=== PATIENT | male | born 1945 | race Caucasian/White ===

== ENCOUNTER 2017-12-12 09:28 | Day surgery (SDC) | payer OTHER ==
[~2017-12-12] VITALS: Ht 172.7 cm; Wt 82.1 kg
[~2017-12-12 09:28] MED LIST: Amlodipine Besyl5 MG PO; CLON.5 PO; DOXY100 PO; ELIQUIS5 MG PO; LISI5 PO; Toprol Xl25 MG PO
[2017-12-13] MEDS ORDERED: Flomax0.4 MG PO (15:47)
== END 2017-12-12 13:28 | disposition home or self-care (01) ==
LOC: ORSCSDS 09:28
PROVIDERS: Orthopaedic Surgery
PROC: 0SBC4ZZ Excision of Right Knee Joint, Percutaneous Endoscopic Approach (ICD-10-PCS; principal; 2017-12-12 10:45)
DX: S83.241A Other tear of medial meniscus, current injury, right knee, initial encounter (principal); S83.511A Sprain of anterior cruciate ligament of right knee, initial encounter; I10 Essential (primary) hypertension; I48.91 Unspecified atrial fibrillation; Z79.01 Long term (current) use of anticoagulants; G47.33 Obstructive sleep apnea (adult) (pediatric); Z79.899 Other long term (current) drug therapy
CPT/HCPCS: J0171; J0690; J1100; J2250; J2370; J2405; J3010; J7120

== ENCOUNTER 2017-12-13 14:25 | Emergency (ER) | payer OTHER ==
[~2017-12-13] VITALS: Ht 177.8 cm; Wt 81.7 kg
[2017-12-13 15:06] LABS: Source, Urine Clean Catch
[2017-12-13 15:15] LABS: Appearance, Urine Hazy (Clear); Bilirubin, Urine Neg (Neg); Blood, Urine 5+ (Neg); Color, Urine Yellow (P-Yellow); Glucose Qualitative, Urine Neg (Neg); Ketones, Urine Neg (Neg); Leukocyte Esterase, Urine 2+ (Neg); Nitrite, Urine Neg (Neg); Protein, Urine 1+ (Neg); Urobilinogen, Urine NORM (Normal)
[2017-12-13 15:32] LABS: Red Blood Cells, Urine 25-50 /hpf (0-2)
[2017-12-13 15:33] LABS: Bacteria Few /hpf; Squamous Epithelial Cells Rare /hpf (Few)
[2017-12-13] MEDS ORDERED: Flomax0.4 MG PO (15:47)
== END 2017-12-13 16:18 | disposition home or self-care (01) ==
LOC: ER 14:25
PROVIDERS: Emergency Medicine
DX: R33.9 Retention of urine, unspecified (principal); Z79.899 Other long term (current) drug therapy
CPT/HCPCS: 36415; 51702; 51798; 81001; 87086; 99283

== ENCOUNTER 2018-11-24 09:34 | Day surgery (SDC) | payer OTHER ==
[~2018-11-24] VITALS: Ht 177.8 cm; Wt 80.2 kg
[~2018-11-24 09:34] MED LIST changes: +Flomax0.4 MG PO; +Hydrochloroth12.5 MG; +Pravachol40 MG
--- NOTE | 2018-11-24 10:34 | NUR ---
11/24/18 1034 Tayler Castillo INJECTED MYLICON INTO BX PORT PER ORDER.
== END 2018-11-24 11:30 | disposition home or self-care (01) ==
LOC: ORSCSDS 09:34
PROVIDERS: Internal Medicine Gastroenterology
PROC: 3E0H8GC Introduction of Other Therapeutic Substance into Lower GI, Via Natural or Artificial Opening Endoscopic (ICD-10-PCS; principal; 2018-11-24 10:45)
PROC: 0DBN8ZX Excision of Sigmoid Colon, Via Natural or Artificial Opening Endoscopic, Diagnostic (ICD-10-PCS; principal; 2018-11-24 10:45)
PROC: 0DBH8ZX Excision of Cecum, Via Natural or Artificial Opening Endoscopic, Diagnostic (ICD-10-PCS; principal; 2018-11-24 10:45)
PROC: 0DBL8ZX Excision of Transverse Colon, Via Natural or Artificial Opening Endoscopic, Diagnostic (ICD-10-PCS; principal; 2018-11-24 10:45)
PROC: 0DBK8ZX Excision of Ascending Colon, Via Natural or Artificial Opening Endoscopic, Diagnostic (ICD-10-PCS; principal; 2018-11-24 10:45)
DX: Z12.11 Encounter for screening for malignant neoplasm of colon (principal); D12.0 Benign neoplasm of cecum; D12.2 Benign neoplasm of ascending colon; D12.3 Benign neoplasm of transverse colon; D12.5 Benign neoplasm of sigmoid colon; G47.33 Obstructive sleep apnea (adult) (pediatric); I10 Essential (primary) hypertension; I48.91 Unspecified atrial fibrillation; N40.0 Benign prostatic hyperplasia without lower urinary tract symptoms; Z79.01 Long term (current) use of anticoagulants; Z79.899 Other long term (current) drug therapy
CPT/HCPCS: 88305; J2704; J7120

== ENCOUNTER → 2019-02-16 | Outpatient (CLI) | payer OTHER | END | disposition home or self-care (01) | LOC: LAB SHORT 11:24 → PLD 11:24 | DX: D22.5 Melanocytic nevi of trunk (principal); D22.61 Melanocytic nevi of right upper limb, including shoulder | CPT/HCPCS: 88305 ==